=== PATIENT | female | born 1985 | race Caucasian/White ===

== ENCOUNTER → 2018-01-23 | Outpatient (CLI) | payer MEDICAID ==
[~2018-01-23] MED LIST: IOPAMIDOL (ISOVUE 370) 100 ML BTL IV ONE
== END ==
LOC: FIMAGING 10:10
PROVIDERS: ATTEND Psychiatry & Neurology Neurology
DX: R51 Headache (principal)
CPT/HCPCS: Q9967

== ENCOUNTER → 2019-03-22 | Outpatient (CLI) | payer MEDICAID | LOC: FIMAGING 07:12 ==